=== PATIENT | female | born 1995 | race African-American/Black ===

== ENCOUNTER 2017-02-11 18:30 | Emergency (ER) | payer OTHER, MEDICAID ==
[~2017-02-11] VITALS: Ht 165.1 cm; Wt 70.0 kg
[2017-02-11 20:39] VITALS: BP 133/71
[2017-02-11] MEDS ORDERED: IBUPROFEN 800MG TABLET PO ONE (20:45)
== END 2017-02-11 21:00 | disposition home or self-care (01) ==
LOC: ER 19:06
DX: M54.5 Low back pain (principal); V43.52XA Car driver injured in collision with other type car in traffic accident, initial encounter; Y93.89 Activity, other specified; Y92.488 Other paved roadways as the place of occurrence of the external cause
CPT/HCPCS: 81025; 99283

== ENCOUNTER 2023-11-26 08:49 | Emergency (ER) | payer BC, MEDICAID, OTHER ==
[~2023-11-26] VITALS: Ht 165.1 cm; Wt 85.0 kg
[2023-11-26 08:58] VITALS: BP 143/90; PULSE 103; RESP 18; TEMP 98.1; O2SAT 98
[2023-11-26] MEDS: TETANUS, DIPHTHERIA, PERTUSSIS VAC/PF 0.5ML (>10YR OLD) IM ONE (10:53)
[2023-11-26] MEDS ORDERED: MUPI15CR11 TP (11:39)
[2023-11-26] MEDS ORDERED: SULF1TAB48 MT (11:39)
== END 2023-11-26 12:08 | disposition home or self-care (01) ==
LOC: ER 08:49
DX: L02.411 Cutaneous abscess of right axilla (principal)
CPT/HCPCS: 90471; 90715; 99283